=== PATIENT | male | born 1955 | race Caucasian/White ===

== ENCOUNTER → 2017-06-17 | Outpatient (CLI) | payer BC ==
[~2017-06-17] MED LIST: ADVIL200 MG PO; CASODEX 50MG TA50 MG PO
== END ==
LOC: COL.RAD 08:33
DX: C61 Malignant neoplasm of prostate (principal); K76.9 Liver disease, unspecified; M89.9 Disorder of bone, unspecified
CPT/HCPCS: A9503

== ENCOUNTER 2018-02-21 06:28 | Day surgery (SDC) | payer BC ==
[~2018-02-21] VITALS: Ht 188 cm; Wt 89.9 kg
[2018-02-21 07:18] VITALS: BP 126/71; PULSE 54; TEMP 98
[2018-02-21] MEDS ORDERED: XTANDI40 MG PO (07:22)
[2018-02-21] MEDS ORDERED: GLUCOPHAGE1000 MG PO (07:22)
[2018-02-21] MEDS ORDERED: ZESTRIL 10MG10 MG PO (07:23)
[2018-02-21] MEDS ORDERED: ZOCOR 40MG40 MG PO (07:23)
[2018-02-21] MEDS ORDERED: LEXAPRO 10MG10 MG PO (07:24)
[2018-02-21] MEDS ORDERED: OSCAL 500 TAB500 MG PO (07:25)
[2018-02-21] MEDS ORDERED: UROCIT-K 5540 MG/TAB (07:25)
[2018-02-21] MEDS ORDERED: ASPIRIN E.C. 8181 MG PO (07:26)
[2018-02-21 08:43] VITALS: BP 119/60; PULSE 47; TEMP 97.5
[2018-02-21 08:58] VITALS: BP 116/66; PULSE 47
[2018-02-21 09:13] VITALS: BP 120/65; PULSE 48
== END 2018-02-21 09:44 | disposition home or self-care (01) ==
LOC: SDCO 06:28
DX: Z12.11 Encounter for screening for malignant neoplasm of colon (principal); D12.2 Benign neoplasm of ascending colon; K57.30 Diverticulosis of large intestine without perforation or abscess without bleeding; E78.00 Pure hypercholesterolemia, unspecified; I10 Essential (primary) hypertension; Z91.040 Latex allergy status; Z86.010 Personal history of colon polyps
CPT/HCPCS: J2250; J3010; J7030

== ENCOUNTER → 2018-06-11 | Outpatient (CLI) | payer BC ==
[~2018-06-11] MED LIST changes: +ASPIRIN E.C. 8181 MG PO; +GLUCOPHAGE1000 MG PO; +LEXAPRO 10MG10 MG PO; +OSCAL 500 TAB500 MG PO; +UROCIT-K 5540 MG/TAB; +XTANDI40 MG PO; +ZESTRIL 10MG10 MG PO; +ZOCOR 40MG40 MG PO
== END ==
LOC: COL.RAD 09:36
DX: M85.88 Other specified disorders of bone density and structure, other site (principal); R16.0 Hepatomegaly, not elsewhere classified; Z85.46 Personal history of malignant neoplasm of prostate; Z90.79 Acquired absence of other genital organ(s)
CPT/HCPCS: A9503; Q9967

== ENCOUNTER → 2019-02-24 | Outpatient (CLI) | payer BC | LOC: COL.RAD 07:38 | DX: C61 Malignant neoplasm of prostate (principal) | CPT/HCPCS: A9503; Q9967 ==

== ENCOUNTER → 2019-08-20 | Outpatient (CLI) | payer BC | LOC: COL.RAD 09:16 | DX: Z01.812 Encounter for preprocedural laboratory examination (principal); C61 Malignant neoplasm of prostate | CPT/HCPCS: A9503; Q9967 ==

== ENCOUNTER → 2020-03-16 | Outpatient (CLI) | payer BC | LOC: COL.RAD 09:34 | DX: C61 Malignant neoplasm of prostate (principal); C79.51 Secondary malignant neoplasm of bone; S22.31XA Fracture of one rib, right side, initial encounter for closed fracture; M89.8X8 Other specified disorders of bone, other site; R16.0 Hepatomegaly, not elsewhere classified | CPT/HCPCS: A9503; Q9967 ==

== ENCOUNTER 2020-03-29 05:45 | Day surgery (SDC) | payer BC ==
[~2020-03-29] VITALS: Ht 188 cm; Wt 85.0 kg
[2020-03-29] MEDS ORDERED: CALCIUM CITRAT200 M2 PO (06:24)
[2020-03-29] MEDS ORDERED: TYLENOL 325MG325 MG PO (06:25)
[2020-03-29] MEDS ORDERED: LIPITOR 10MG10 MG PO (06:25)
[2020-03-29] MEDS ORDERED: LUPRON DEPOT22.5 M1 IM (06:26)
[2020-03-29] MEDS ORDERED: PRINIVIL10 MG PO (06:26)
[2020-03-29] MEDS ORDERED: LEXAPRO 10MG10 MG PO (06:26)
[2020-03-29] MEDS ORDERED: GLUCOPHAGE XR500 M1 PO (06:26)
[2020-03-29] MEDS ORDERED: UROCIT-K15 MEQ PO (06:27)
[2020-03-29] MEDS ORDERED: DECADRON 4MG TAB4 MG PO (06:27)
[2020-03-29 06:44] VITALS: BP 136/85; PULSE 67; TEMP 96.8
--- NOTE | 2020-03-29 07:21 | NUR ---
Patient is taken to the OR by GLADYS Segovia at this time.
[2020-03-29 08:09] VITALS: BP 126/69; PULSE 57; TEMP 96.4
--- NOTE | 2020-03-29 08:09 | NUR ---
Patient arrives to [facility] [place] [facility] via cart, accompanied by CABLE ASSEMBLER and BOND UNDERWRITER. Bedside report is received. He is sitting up in bed, alert and oriented. IVF are to TKO and infusing without difficulty. He has a left chest port a catheter that is accessed and is to remain accessed at discharge for chemotherapy appointment this afternoon. Monitoring is applied - VSS and WNL on room air. He denies any pain or nausea. He is offered and receives juice to drink. He does not want anything to eat. Call light is in reach. Will continue to monitor.
[2020-03-29] MEDS ORDERED: NORCO 325 MG-51 TAB PO (08:11)
[2020-03-29 08:15] VITALS: BP 138/79; PULSE 54
--- NOTE | 2020-03-29 08:15 | NUR ---
Patient is resting in his room, reading his book. He denies any pain, nausea, or need.
[2020-03-29 08:30] VITALS: BP 143/68; PULSE 55
[2020-03-29 08:45] VITALS: BP 156/71; PULSE 55
--- NOTE | 2020-03-29 09:00 | NUR ---
Patient has met discharge criteria. Discharge instructions are discussed. He denies any questions and verbalizes understanding. PIV is removed with catheter intact and hemostasis achieved. He changes to his clothing independently. He is escorted to the exit via wheelchair by staff. He is discharged to home with ride in private vehicle at 0900.
== END 2020-03-29 09:00 | disposition home or self-care (01) ==
LOC: SDCO 05:45
DX: C61 Malignant neoplasm of prostate (principal); C78.7 Secondary malignant neoplasm of liver and intrahepatic bile duct; C79.51 Secondary malignant neoplasm of bone; Z79.82 Long term (current) use of aspirin; Z79.899 Other long term (current) drug therapy; Z91.040 Latex allergy status; I10 Essential (primary) hypertension; E11.9 Type 2 diabetes mellitus without complications; Z79.84 Long term (current) use of oral hypoglycemic drugs; F41.9 Anxiety disorder, unspecified
CPT/HCPCS: C1788; J0690; J1644; J2704; J7120

== ENCOUNTER → 2020-05-26 | Outpatient (CLI) | payer BC ==
[~2020-05-26] MED LIST changes: +CALCIUM CITRAT200 M2 PO; +DECADRON 4MG TAB4 MG PO; +GLUCOPHAGE XR500 M1 PO; +LIPITOR 10MG10 MG PO; +LUPRON DEPOT22.5 M1 IM; +NORCO 325 MG-51 TAB PO; +PRINIVIL10 MG PO; +TYLENOL 325MG325 MG PO; +UROCIT-K15 MEQ PO
== END ==
LOC: COL.RAD 08:16
DX: C61 Malignant neoplasm of prostate (principal); S22.41XD Multiple fractures of ribs, right side, subsequent encounter for fracture with routine healing; C78.7 Secondary malignant neoplasm of liver and intrahepatic bile duct; C79.51 Secondary malignant neoplasm of bone; Z90.79 Acquired absence of other genital organ(s)
CPT/HCPCS: Q9967

== ENCOUNTER → 2020-08-16 | Outpatient (CLI) | payer BC | LOC: COL.RAD 08:32 | DX: C61 Malignant neoplasm of prostate (principal); M89.9 Disorder of bone, unspecified | CPT/HCPCS: A9503; Q9967 ==

== ENCOUNTER → 2020-08-24 | Outpatient (CLI) | payer BC | LOC: COL.RAD 08-22 12:45 | DX: E04.1 Nontoxic single thyroid nodule (principal) ==

== ENCOUNTER → 2021-04-25 | Outpatient (CLI) | payer BC | LOC: COL.RAD 08:58 | DX: S22.31XA Fracture of one rib, right side, initial encounter for closed fracture (principal); C61 Malignant neoplasm of prostate; Z98.890 Other specified postprocedural states | CPT/HCPCS: A9503; Q9967 ==

== ENCOUNTER → 2023-09-06 | Outpatient (CLI) | payer MEDICARE | LOC: COL.RAD 08:26 | DX: C61 Malignant neoplasm of prostate (principal); C79.51 Secondary malignant neoplasm of bone | CPT/HCPCS: Q9967 ==

== ENCOUNTER → 2024-01-14 | Outpatient (CLI) | payer MEDICARE ==
[~2024-01-14] MED LIST changes: +Iohexol 300 - 100 ML VIAL IV ONE; +NS 100 ML IV SCH
== END ==
LOC: COL.RAD 13:38
DX: C61 Malignant neoplasm of prostate (principal); K76.9 Liver disease, unspecified
CPT/HCPCS: Q9967